=== PATIENT | female | born 1940 | race Caucasian/White ===

== ENCOUNTER 2017-05-23 13:09 | Emergency (ER) | payer MEDICARE, BC ==
[2017-05-23 14:03] LABS: URINE APPEARANCE CLEAR; URINE BILIRUBIN NEGATIVE (NEGATIVE); URINE BLOOD TRACE-I (NEGATIVE); URINE COLOR YELLOW; URINE GLUCOSE (UA) NEGATIVE (NEGATIVE); URINE KETONE NEGATIVE (NEGATIVE); URINE LEUKOCYTE ESTERASE NEGATIVE (NEGATIVE); URINE NITRITE NEGATIVE (NEGATIVE); URINE UROBILINOGEN 0.2 E.U./dL (0.20 - 1.00)
[2017-05-23 14:10] LABS: URINE EPITHELIAL CELLS NONE SEEN (FEW); URINE RBC 0 - 2 (NONE SEEN); URINE WBC NONE SEEN (0-2/hpf)
[2017-05-23] MEDS ORDERED: 0.9 % SODIUM CHLORIDE 1,000 ML BAG IV ONE (14:20)
--- NOTE | 2017-05-23 14:20 | Emergency Department Record ---
History of Present Illness - General Chief complaint: Weakness Stated complaint: WEAKNESS Time Seen by Provider: 05/23/17 13:49 Source: Family Mode of Arrival: EMS Limitations: No limitations - History of Present Illness Initial comments: The patient is here with her caregiver due to not feeling well today. The caregiver has been gone for 10 days on vacation and when she saw the patient this AM she appeared to be very weak and dehydrated. The patient also seemed to be having trouble breathing at one point but denied any pain or discomfort. The caregiver states the patient gets like this when she gets a UTI. There also has been no hx of syncope or serious head trauma. The patient has severe dementia and cannot give any hx. Her baseline is to be very confused. She has had a mild to moderate cough the last week or 2 per the caregiver. MD Complaint: Generalized weakness -: Unknown Location: Generalized Associated Symptoms: Denies other symptoms - Lawrence Coma Scale Eye Response: (4) Open spontaneously Motor Response: (6) Obeys commands Verbal Response: (4) Confused conversation Lawrence Total: 14 - Related Data Home Medications Medication Instructions Recorded Confirmed Last Taken Alprazolam [Xanax] 0.5 mg PO DAILY 05/23/17 05/23/17 Unknown Escitalopram Oxalate [Lexapro] 10 mg PO DAILY 05/23/17 05/23/17 Unknown Levothyroxine Sodium [Synthroid] 50 mcg PO DAILY 05/23/17 05/23/17 Unknown Previous Rx's Medication Instructions Recorded Azithromycin [Zithromax] 250 mg PO ASDIR #6 tab 05/23/17 Allergies Allergy/AdvReac Type Severity Reaction Status Date / Time sulfamethoxazole Allergy PT UNSURE Verified 05/23/17 13:20 [From Bactrim] OF REACTION tetracycline Allergy PT UNSURE Verified 05/23/17 13:20 OF REACTION trimethoprim [From Bactrim] Allergy PT UNSURE Verified 05/23/17 13:20 OF REACTION Travel Screening - Travel/Exposure Within Last 30 Days Have you traveled within the last 30 days?: No Review of Systems Constitutional: Reports: Malaise. Denies: Chills, Fever Eyes: Denies: Eye discharge ENT: Denies: Congestion Respiratory: Reports: Dyspnea. Denies: Cough Cardiovascular: Denies: Arrhythmia, Chest pain Past Medical History - SOCIAL HISTORY Smoking Status: Never smoker Alcohol Use: None Drug Use: None - RESPIRATORY Hx Respiratory Disorders: No - CARDIOVASCULAR Hx Cardio Disorders: No - NEURO Hx Neuro Disorders: Yes Comment:: alzhiemers - GI Hx GI Disorders: No - Hx Genitourinary Disorders: No - ENDOCRINE Hx Endocrine Disorders: Yes Hx Thyroid Disease: Yes - MUSCULOSKELETAL Hx Musculoskeletal Disorders: No - PSYCH Hx Psych Problems: No - HEMATOLOGY/ONCOLOGY Hx Hematology/Oncology Disorders: No Family Medical History Any Significant Family History?: No Family Hx Comment (NOT TO BE USED IN PLACE OF ITEMS BELOW): unknown Physical Exam - General General Appearance: Alert, Cooperative, No acute distress - Head Head exam: Atraumatic, Normocephalic - Eye Eye exam: Normal appearance, PERRL - Neck Neck exam: Normal inspection, Full ROM. negative: Tenderness - Respiratory Respiratory exam: Normal lung sounds bilaterally. negative: Respiratory distress - Cardiovascular Cardiovascular Exam: Regular rate, Normal rhythm, Normal heart sounds - GI/Abdominal GI/Abdominal exam: Soft, Normal bowel sounds. negative: Tenderness - Extremities Extremities exam: Normal inspection, Full ROM, Normal capillary refill. negative: Tenderness - Back Back exam: Reports: Normal inspection - Neurological Neurological exam: Abnormal gait (Chronic.), Alert. negative: Motor sensory deficit, Normal gait, Oriented X3 (The patient is not normally oriented. ) - Skin Skin exam: negative: Rash Course Vital Signs 05/23/17 13:12 Temperature 97.5 F L Pulse Rate 89 Respiratory 20 Rate Blood Pressure 130/77 Pulse Ox 98 - Reevaluation(s) Reevaluation #1: The patient is doing well at this time. She is awake and alert but confused which is her normal mental status. We did get her up walking with her gait belt and she does seem to be ambulating normally per the caregiver. She is walking with no hip or leg pain. I did relay that there were no signs of any active infections or illnesses. We will discharge the patient to home and have her F/U with her PCP later this week. 05/23/17 15:40 05/23/17 16:02 Medical Decision Making - Data Complexity MDM Data: Labs Ordered and/or Reviewed, X-Ray Ordered and/or Reviewed, EKG Ordered and/or Reviewed - Lab Data Result diagrams: 05/23/17 14:25 05/23/17 14:25 Lab Results 05/23/17 Range/Units 13:45 Urine Color Yellow Urine Appearance Clear Urine pH 6.0 (5.0-8.0) Ur Specific [place] >= 1.030 (1.002-1.030) Urine Protein 30 mg/dl H (NEGATIVE) Urine Glucose (UA) Negative (NEGATIVE) Urine Ketones Negative (NEGATIVE) Urine Blood Trace-i (NEGATIVE) Urine Nitrite Negative (NEGATIVE) Urine Bilirubin Negative (NEGATIVE) Urine Urobilinogen 0.2 (0.20 - 1.00) E.U./dL Ur Leukocyte Esterase Negative (NEGATIVE) Urine RBC 0 - 2 (NONE SEEN) Urine WBC None seen (0-2/hpf) Ur Epithelial Cells None seen (FEW) - EKG Data -: EKG Interpreted by Me EKG: No Acute Changes, Normal EKG - Radiology Data Radiology results: Report reviewed (CXR: Old L healing rib fx. No acute changes. ) Disposition Disposition: Discharge Clinical Impression: Weakness Disposition: Home, Self-Care Condition: (2) Stable Instructions: Weakness (ED) Additional Instructions: Please continue the regular home medicines and increase the patient's fluid intake. Please follow up with your PCP later this week and return to the ER for any worsening symptoms. The patient is also to take the Zpak for the recent cough. Prescriptions: Azithromycin [Zithromax] 250 mg PO ASDIR #6 tab Forms: Patient Portal Access Time of Disposition: 15:42 Quality - Quality Measures Quality Measures: N/A - Blood Pressure Screening View Details: Yes Does Patient Have Any of the Following: No Blood Pressure Classification: Pre-Hypertensive BP Reading Systolic Measurement: 130 Diastolic Measurement: 77 Screening for High Blood Pressure: < Pre-Hypertensive BP, F/U Documented > [ [id number]] Pre-Hypertensive Follow-up Interventions: Referral to alternative/primary care provider.
[2017-05-23 14:30] LABS: BASO % 0.3 % (0-6); EOS % 0.6 % (0-6); HEMATOCRIT 40.7 % (35.0-47.0); HEMOGLOBIN 13.1 gm/dl (11.6-16.0); LYMPH % 16.8 % (16-45); MEAN CELL VOLUME 92.3 fl (81-97); MEAN CORPUSCULAR HEMOGLOBIN 29.7 pg (27-33); MEAN CORPUSCULAR HGB CONC 32.2 g/dl (32-36); MEAN PLATELET VOLUME 9.6 fl (7.4-10.4); MONO % 10.3 % (0-9); PLATELET COUNT 278 K/uL (130-400); RED BLOOD COUNT 4.41 M/uL (3.80-5.40); RED CELL DISTRIBUTION WIDTH 13.7 % (11.5-14.5)
[2017-05-23 14:44] LABS: BLOOD UREA NITROGEN 21 mg/dL (8-23); CREATININE 0.8 mg/dL (0.5-0.9); EST GLOMERULAR FILTRATION RATE > 60 mL/min
[2017-05-23 14:47] LABS: GLUCOSE,RANDOM 100 mg/dL (74-109)
[2017-05-23 14:50] LABS: CREATINE PHOSPHOKINASE 78 U/L (26-192)
[2017-05-23 14:51] LABS: CKMB 2.3 ng/mL (<3.77)
--- NOTE | 2017-05-23 15:03 | RADIOLOGY REPORT ---
EXAM: CHEST, TWO VIEWS HISTORY: DIFFICULTY IN BREATHING. TECHNIQUE: Frontal and lateral views of the chest were performed. FINDINGS: The heart size is normal. The lung hernandez are clear. No infiltrate or pleural effusion. Healed left posterior rib fracture deformities. IMPRESSION: NO ACUTE DISEASE PROCESS. JOB NUMBER: [id number]
== END 2017-05-23 16:03 | disposition home or self-care (01) ==
LOC: ER 13:09
DX: R53.1 Weakness (principal); R05 Cough; R06.00 Dyspnea, unspecified; G30.9 Alzheimer's disease, unspecified; F02.80 Dementia in other diseases classified elsewhere, unspecified severity, without behavioral disturbance, psychotic disturbance, mood disturbance, and anxiety
CPT/HCPCS: 71020; 80048; 81001; 82550; 82553; 84484; 85025; 93005; 93010; 99284; J7030